=== PATIENT | male | born 1960 | race Caucasian/White ===

== ENCOUNTER → 2017-09-07 | Outpatient (CLI) | payer BC ==
[~2017-09-07] MED LIST: GADOBUTROL 10 MMOL/10 ML PFS ONE
== END | disposition home or self-care (01) ==
LOC: CFH 06:56
PROVIDERS: ATTEND Registered Nurse
DX: J32.0 Chronic maxillary sinusitis (principal); J32.2 Chronic ethmoidal sinusitis; G40.909 Epilepsy, unspecified, not intractable, without status epilepticus; G90.2 Horner's syndrome
CPT/HCPCS: 70553; A9585